=== PATIENT | female | born 1995 | race African-American/Black ===

== ENCOUNTER 2024-06-17 07:34 | Inpatient (IN) | payer OTHER ==
[2024-06-17 20:58] LABS: BASO % 0.2 % (0-2.0); EOS % 0.6 % (0-4.5); HEMATOCRIT 38.7 % (32.4-45.2); HEMOGLOBIN 12.4 GM/dL (10.7-15.3); LYMPH % 21.5 % (8-40); MCH 25.1 pg (25.7-33.7); MCHC 32.1 g/dl (32.0-36.0); MEAN CELL VOLUME 78.3 fl (80-96); MEAN PLT VOLUME 6.9 fl (7.5-11.1); MONO % 6.9 % (3.8-10.2); NEUT % 70.8 % (42.8-82.8); PLATELET COUNT 291 10^3/uL (134-434); RBC 4.95 M/mm3 (3.60-5.2); RDW 15.1 % (11.6-15.6); WHITE BLOOD COUNT 10.9 K/mm3 (4.0-10.0)
[2024-06-17 21:05] LABS: INR 0.88 (0.83-1.09); PROTHROMBIN TIME (PATIENT) 10.2 SEC (9.7-13.0)
[2024-06-17 21:08] LABS: ACTIVATED PTT 28.2 SECONDS (25.2-36.5)
[2024-06-17 21:14] LABS: CHLORIDE 108 mmol/L (98-107); POTASSIUM 3.3 mmol/L (3.5-5.1); SODIUM 138 mmol/L (136-145)
[2024-06-17 21:17] LABS: ALBUMIN 2.9 g/dl (3.4-5.0); ANION GAP 9 mmol/L (4-13); CALCIUM 9.1 mg/dL (8.5-10.1); CO2 22 mmol/L (21-32); GLUCOSE,RANDOM 120 mg/dL (74-106)
[2024-06-17 21:18] LABS: BLOOD UREA NITROGEN 5.9 mg/dL (7-18)
[2024-06-17 21:20] LABS: CREATININE 0.8 mg/dL (0.55-1.3); SGPT/ALT 25 U/L (13-61)
[2024-06-17] MEDS: DEXTROSE 5%-LACTATED RINGERS 1,000 ML IV SCH (21:20)
[2024-06-17 21:21] LABS: SGOT/AST 18 U/L (15-37)
[2024-06-17 21:22] LABS: TOT PROT 6.6 g/dl (6.4-8.2)
[2024-06-17 21:23] LABS: ALK PHOS 189 U/L (45-117)
[2024-06-17 21:52] VITALS: BMI 33.6
[2024-06-17] MEDS: MISOPROSTOL 100 MCG TABLET PV SCH (22:35)
[2024-06-18] MEDS: SODIUM CHLORIDE 500 ML IV STA ×2 (05:25→12:00)
[2024-06-18] MEDS ORDERED: OXYTOCIN 30 UNITS in 0.9% NS 30 UNIT/500 ML INFUS.BAG IVPB ONE (11:11)
[2024-06-18] MEDS: OXYTOCIN 30 UNITS in 0.9% NS 30 UNIT/500 ML INFUS.BAG IVPB SCH (11:20)
[2024-06-18] MEDS ORDERED: morphine SULFATE 4 MG/ML VIAL ONE (12:25)
[2024-06-18] MEDS: morphine SULFATE 4 MG/ML VIAL IM ONE (12:35)
[2024-06-18] MEDS ORDERED: FENTANYL/BUPIVACAINE/NS/PF - PCEA - 50 ML DISP.SYRIN EP ONE (14:59)
[2024-06-18] MEDS: SODIUM CHLORIDE 1,000 ML IV STA (15:10)
[2024-06-18] MEDS ORDERED: BUPIVACAINE HCL/PF 0.25% (2.5MG/ML) 10 ML VIAL ONE (15:12)
[2024-06-18] MEDS ORDERED: FENTANYL CITRATE/PF 50 MCG/ML VIAL ONE (15:12)
[2024-06-18] MEDS: FENTANYL/BUPIVACAINE/NS/PF - PCEA - 50 ML DISP.SYRIN EP SCH (15:15)
[2024-06-18] MEDS ORDERED: NALOXONE HCL 0.4 MG/ML VIAL IVPUSH PRN (16:37)
[2024-06-18] MEDS ORDERED: OXYTOCIN 20 UNITS in 0.9% NS 20 UNIT/1,000 ML INFUS.BAG IV ONE (17:36)
[2024-06-18] MEDS: metoPROLOL SUCCINATE 25 MG TAB.SR.24H (FP) PO ONE (18:02)
[2024-06-18] MEDS ORDERED: LABETALOL HCL 20 MG/4 ML VIAL ONE (18:47)
[2024-06-18] MEDS: LABETALOL HCL 20 MG/4 ML VIAL IVPUSH ONE (19:03)
[2024-06-18] MEDS: OXYTOCIN 20 UNITS in 0.9% NS 20 UNIT/1,000 ML INFUS.BAG IV SCH (19:48)
[2024-06-18] MEDS ORDERED: BENZOCAINE 28 GM HEMORRHOIDAL OINTMENT TP PRN (20:16)
[2024-06-18 20:17] LABS: CORD BASE EXCESS -5.3 mmol/L (0-2); CORD PCO2 43.8 mmHg (30-78); CORD pH 7.299 (7.14-7.44)
[2024-06-18] MEDS: WITCH HAZEL 50% (TUCKS) 40 PAD/JAR PAD TP PRN (22:32)
[2024-06-18] MEDS: IBUPROFEN 600 MG TABLET (FP) PO PRN (22:33)
[2024-06-19 07:04] LABS: BASO % 0.1 % (0-2.0); EOS % 0.3 % (0-4.5); HEMATOCRIT 31.7 % (32.4-45.2); HEMOGLOBIN 10.2 GM/dL (10.7-15.3); LYMPH % 15.5 % (8-40); MCH 25.5 pg (25.7-33.7); MEAN CELL VOLUME 79.7 fl (80-96); MONO % 7.3 % (3.8-10.2); NEUT % 76.8 % (42.8-82.8); PLATELET COUNT 228 10^3/uL (134-434); RBC 3.98 M/mm3 (3.60-5.2); WHITE BLOOD COUNT 15.6 K/mm3 (4.0-10.0)
[2024-06-19] MEDS: ACETAMINOPHEN 325 MG TABLET (FP) PO PRN (10:10)
[2024-06-20 14:02] VITALS: RESP 16
[2024-06-20 15:53] VITALS: BP 119/72; PULSE 92; TEMP 98.1
== END 2024-06-20 16:55 | disposition home or self-care (01) | DRG 807 ==
LOC: JLDR 07:34 → J3W 06-18 22:30
PROVIDERS: ADMIT Obstetrics & Gynecology Maternal & Fetal Medicine; ATTEND Obstetrics & Gynecology Maternal & Fetal Medicine
PROC: 3E0P7VZ Introduction of Hormone into Female Reproductive, Via Natural or Artificial Opening (ICD-10-PCS; 2024-06-17)
PROC: 10E0XZZ Delivery of Products of Conception, External Approach (ICD-10-PCS; principal; 2024-06-18)
PROC: 3E033VJ Introduction of Other Hormone into Peripheral Vein, Percutaneous Approach (ICD-10-PCS; 2024-06-18)
PROC: 10907ZC Drainage of Amniotic Fluid, Therapeutic from Products of Conception, Via Natural or Artificial Opening (ICD-10-PCS; 2024-06-18)
DX: O13.3 Gestational [pregnancy-induced] hypertension without significant proteinuria, third trimester (principal); Z37.0 Single live birth; O70.0 First degree perineal laceration during delivery; O99.892 Other specified diseases and conditions complicating childbirth; R00.0 Tachycardia, unspecified; Z3A.39 39 weeks gestation of pregnancy
CPT/HCPCS: 36415; 36600; 59409; 80053; 82803; 85025; 85610; 85730; 86780; 86850; 86900; 86901; 88307-TC